=== PATIENT | male | born 1955 | race Caucasian/White ===

== ENCOUNTER 2017-10-01 17:33 | Emergency (ER) | payer SELFPAY ==
[2014-03-28 08:55] VITALS: Wt 79.4 kg
[~2017-10-01 17:33] MED LIST: CEP500 PO; FOLI-68 PO; LOR7.5/325 PO; MAGN400T4 PO; MULT-1335 PO; NICO4LOZ35 BC; OXYC10TA67 PO; OXYC20TA77 PO; PANT40TA65 PO; Sucralfate PO; THIA100T2 PO; Thiamine Hcl PO
--- NOTE | 2017-10-01 17:49 | ER Report ---
History and Physical Time Seen By MD: 17:45 Hx. of Stated Complaint: PT PRESENTS VIA [employer] FOR SHELTER CLEARANCE HPI/ROS CHIEF COMPLAINT: Intermediate clearance HISTORY OF PRESENT ILLNESS: 62-year-old male patient presents to emergency room accompanied by [employer] with complaint of needing a Intermediate clearance. Patient was arrested for DUI. Patient blew a 0.3 blood alcohol. Due to the high level of alcohol in his system patient was brought in for further evaluation prior to being booked into prison. Patient at this time states he has no complaints. He denies any abdominal pain, chest pain, shortness of breath. Patient states that he feels fine. Allergies: Coded Allergies: No Known Drug Allergies (Verified , 10/01/17) Home Meds Discontinued Reported Medications Nicotine Polacrilex (NICOTINE LOZENGE) 4 Mg Lozenge, 4 MG BC Q1-2H Y for NICOTINE REPLACEMENT, LOZENGE 10/11/16 Thiamine Mononitrate (VITAMIN B-1) 100 Mg Tablet, 100 MG PO DAILY 10/11/16 Multivitamin With Minerals (MULTIPLE VITAMIN) 1 Each Tablet, 1 EACH PO DAILY, TAB 10/11/16 Magnesium Oxide (MAG-OXIDE) 400 Mg Tablet, 400 MG PO BIDBS 10/11/16 Folic Acid (FOLIC ACID) 1 Mg Tablet, 1 MG PO QDAY, TAB 10/11/16 Past Medical/Surgical History Patient has a past medical history of alcohol abuse. Patient has a surgical history of splenectomy. Patient has a family medical history of cancer, CAD, diabetes. Reviewed Nurses Notes: Yes Hx Smoking: Yes Smoking Status: Current: Every Day Smoker Exposure to Second Hand Smoke?: No Hx Substance Use Disorder: No Hx Alcohol Use: Yes (12 PACK A WEEK) Constitutional Vital Sign - Last 24 Hours 10/01/17 10/01/17 17:34 17:50 Temp 98.0 Pulse 94 Resp 20 B/P (MAP) 147/102 113/91 (98) Pulse Ox 91 O2 Delivery Room Air Physical Exam General appearance: Alert no distress. Patient has no slurred speech, no signs of being intoxicated. Respiratory: Chest is non tender, lungs are clear to auscultation. Cardiac: Regular rate and rhythm DIFFERENTIAL DIAGNOSIS: After history and physical exam differential diagnosis was considered for alcohol intoxication, clearance for incarceration. Medical Decision Making ED Course/Re-evaluation ED Course Patient was admitted to exam room, history and physical were obtained. Differential diagnoses were considered. On examination patient is alert oriented , he has no slurred speech. With the patient doesn't fact have a blood alcohol of greater than 300, however he does appear totally sober at this point time. I believe patient does drink considerably more than a 12 pack a week which he claimed in the past medical history. Patient is cleared to go to prison, however I would like him to follow-up with the health services at the [facility] for a medical detox specialist is going to be there for an extended period time. He is to talk with deputies overnight if is having any problems. I discussed this with the patient and he verbalized understanding and agreement with plan. Decision to Disposition Date: October 01, 2017 Decision to Disposition Time: 17:49 Depart Departure Latest Vital Signs Vital Signs Date Time Temp Pulse Resp B/P (MAP) Pulse Ox O2 Delivery O2 Flow Rate FiO2 10/01/17 17:50 113/91 (98) 10/01/17 17:34 98.0 94 20 91 Room Air Impression: Primary Impression: Medical clearance for incarceration Additional Impression: Alcoholism Condition: Condition Unchanged Disposition: [facility] TO SHELTER/CORRECTIONAL F New Scripts No Active Prescriptions or Reported Meds Patient Instructions: GENERAL ER DISCHARGE INSTRUCTIONS Additional Instructions: Increase fluid intake. Get plenty of rest. Discuss with the nurses at the [facility] if you are having any problems. Talk with the deputies at the [facility] if you're hearing or seeing anything that isn't there. Follow-up with her primary care provider next week. Return to the emergency room if condition worsens. Problem Qualifiers IFEOMA MONTANEZ October 01, 2017 17:49
[2017-10-01 17:50] VITALS: BP 113/91
== END 2017-10-01 17:55 ==
LOC: ER 17:52
DX: F10.20 Alcohol dependence, uncomplicated (principal); Y90.8 Blood alcohol level of 240 mg/100 ml or more
CPT/HCPCS: 99281